=== PATIENT | female | born 1970 | race Caucasian/White ===

== ENCOUNTER 2017-03-27 03:18 | Observation (INO) ==
--- NOTE | 2017-03-27 04:26 | Emergency Department Note ---
Disposition Clinical Impression: Hypokalemia, Chest pain, rule out acute myocardial infarction, Peripheral edema Disposition: Admitted As Inpatient Condition: Good Referrals: Reynaldo Tinajero MD [Primary Care Provider] - Time of Disposition: 07:24 General Adult HPI - General Chief complaint: ED General Medical Stated complaint: swelling in lower extremities Time Seen by Provider: 03/27/17 03:33 Source: patient, family Mode of arrival: wheelchair Limitations: no limitations Nursing Notes Reviewed: Yes Vital Signs Reviewed: Yes - History of Present Illness HPI Narrative: Patient is a 46-year-old female that presents to the ED with bilateral leg swelling and increased urination and loss of bladder control. Patient states that the leg swelling has been off-and-on for the past month. She has been prescribed Lasix but for the past 3-4 days Lasix has not been helping the leg swelling. Said nothing really seems to make this any better and nothing makes it worse. Patient also states that she has had some lower abdominal pain. Patient states that it is just kind of a dull ache and is relieved with urination. She states that she has increase urinary frequency but denies any burning with urination or blood in the urine. Patient has also had increased thirst. Patient states that she feels like she has been having a fever with chills. The patient also mentions that she has been having some intermittent chest pain that usually last for 5 minutes. States that it is located on the left and radiates to the center of her chest. She states that it is sharp in nature and sometimes causes her to be short of breath. Pain Scale: 10 - Related Data Home Medications Medication Instructions Recorded Confirmed Alprazolam [Xanax] 1 mg PO TID 07/31/15 05/04/16 Amlodipine [Norvasc] 5 mg PO QAM 07/31/15 05/04/16 Duloxetine [Cymbalta] 30 mg PO QAM 07/31/15 05/04/16 Gabapentin [Neurontin] 800 mg PO TID 07/31/15 05/04/16 Hydrochlorothiazide 25 mg PO QAM 07/31/15 05/04/16 Ketotifen Fumarate [Zaditor] 1 drop BOTH EYES BID 04/01/16 05/04/16 Latanoprost [Xalatan] 1 drop BOTH EYES HS 04/01/16 05/04/16 Previous Rx's Medication Instructions Recorded OxyCODONE Immed Rel [Roxicodone 5 5 mg PO Q6HR PRN #60 tablet 04/02/16 MG] Acetaminophen [Tylenol] 650 mg PO Q6HR PRN #20 tablet 08/06/16 Diclofenac Potassium 50 mg PO TID PRN #20 tablet 08/06/16 Lacosamide [Vimpat] 100 mg PO DAILY #20 tablet 11/09/16 Ondansetron ODT [Zofran ODT] 4 mg SL Q6HR #10 tab.rapdis 11/09/16 Allergies Allergy/AdvReac Type Severity Reaction Status Date / Time No Known Allergies Allergy Verified 07/31/15 20:10 All systems ED: reviewed and negative except as stated. Constitutional: Reports: fever, chills Cardiovascular: Reports: chest pain Respiratory: Reports: dyspnea Gastrointestinal: Reports: abdominal pain Genitourinary: Reports: urgency, frequency Integumentary: Reports: rash Past Medical History - Past Medical History Attestation: Yes The following information was validated with the patient. Medical history: Reports: fibromyalgia, GI bleed, hypertension, seizures Surgical history: Reports: hysterectomy Psychiatric history: Reports: anxiety, depression - Social History Smoking Status: Current every day smoker Smokeless Tobacco Status: No Alcohol use: Reports: none Drug use: Reports: marijuana Physical Exam - General Limitations: no limitations General appearance: alert, in no apparent distress - Head Head exam: atraumatic, normocephalic - Neck Neck exam: Present: normal inspection, full ROM, trachea midline - Respiratory Respiratory exam: Present: wheezes. Absent: respiratory distress - Cardiovascular Cardiovascular exam: Present: regular rate, normal rhythm, normal heart sounds, +S1, +S2 - Abdominal Exam Abdominal exam: Present: soft, normal bowel sounds, other (Diffuse discomfort on palpation) - Expanded Lower Extremity Exam Lower leg exam: Present: swelling (Mild swelling bilaterally) Ankle exam: Present: swelling Foot/toe exam: Present: swelling - Neurological Exam Neurological exam: Present: alert, oriented X3 - Psychiatric Psychiatric exam: Present: normal affect, normal mood - Skin Skin exam: Present: warm, dry, intact Course Vital Signs Temperature 98.4 F 03/27/17 03:18 Pulse Rate 77 03/27/17 03:18 Respiratory Rate 18 03/27/17 03:18 Blood Pressure 118/75 03/27/17 03:18 O2 Sat by Pulse Oximetry 94 03/27/17 03:18 Temperature 98.4 F 03/27/17 03:18 Pulse Rate 65 03/27/17 07:05 Respiratory Rate 18 03/27/17 07:05 Blood Pressure 104/55 03/27/17 07:05 O2 Sat by Pulse Oximetry 95 03/27/17 07:05 Oxygen Delivery Oxygen Delivery Room Air Medical Decision Making - MDM Narrative Medical decision making narrative: Patient is a 46-year-old female that presents with chest pain, bilateral leg swelling and increased frequency of urination. Patient states the potassium came back at 2.2 so we gave her 40 of oral potassium and 40 of IV potassium. Due the patient's symptoms and current laboratory findings I am recommending the patient is admitted to the hospital. EKG showed sinus rhythm with diffuse t wave flattening, Troponin was negative, chest x-ray showed a stable chest without acute infiltrate. We will be admitting the patient for ACS rule out, hypokalemia and peripheral edema. Dr. Hernandez spoke with the hospitalist and will be admitting the patient. - Medical Records Medical records reviewed: Yes I reviewed the patient's medical records. - Lab Data Lab results reviewed: Yes I reviewed the patient's lab results. Result diagrams: 03/27/17 05:12 03/27/17 05:12 Lab Results 03/27/17 03/27/17 03/27/17 Range/Units 04:47 05:12 05:12 WBC 9.7 (4.3-11.1) K/mcL RBC 4.19 (3.82-4.97) M/mcL Hgb 12.9 (11.5-15.4) g/dL Hct 37.7 (35.3-44.9) % MCV 90.0 (83.0-100.0) fL MCH 30.8 (28.0-33.3) pg MCHC 34.2 (31.6-35.5) g/dL RDW 13.8 (11.5-14.5) % Plt Count 107 L (140-400) K/mcL MPV 12.6 H (9.4-12.4) fL Immature Gran % 0.4 (0-4) % Seg Neutrophils % 68.7 % Lymphocytes % 25.1 % Monocytes % 5.1 % Eosinophils % 0.5 % Basophils % 0.2 % Neutrophils # 6.7 (1.6-8.9) K/mcL Lymphocytes # 2.4 (0.6-4.6) K/mcL Monocytes # 0.5 (0.0-1.3) K/mcL Eosinophils # 0.1 (0.0-0.6) K/mcL Basophils # 0.0 (0.0-0.2) K/mcL Immature Plt Fraction 13.0 H (1.1-6.1) % PT 12.6 H (9.4-12.1) Seconds INR 1.2 APTT 28.7 (26.0-36.0) Seconds Sodium (136-145) mEq/L Potassium (3.5-4.5) mEq/L Chloride (98-109) mEq/L Carbon Dioxide (19-29) mEq/L BUN (7-20) mg/dL Creatinine (0.57-1.11) mg/dL Est GFR ( Amer) (> 60) Est GFR (Non-Af Amer) (> 60) BUN/Creatinine Ratio (6-26) Glucose (70-99) mg/dL Calculated Osmolality (280-300) Calcium (8.6-10.8) mg/dL Troponin I (0-0.03) ng/mL B-Natriuretic Peptide (0-100) pg/mL Urine Color Yellow (Yellow) Urine Clarity Clear (Clear) Urine pH 7.0 (5.0-8.0) pH Units Ur Specific Apex 1.007 L (1.010-1.025) Urine Protein Negative (Neg-Trace) mg/dL Urine Glucose (UA) Normal (Normal) mg/dL Urine Ketones Negative (Negative) mg/dL Urine Blood Trace H (Negative) Urine Nitrite Negative (Negative) Urine Bilirubin Negative (Negative) Urine Urobilinogen Normal (Normal) mg/dL Ur Leukocyte Esterase Small H (Negative) Urine Microscopic RBC 0-3 (0-3) per hpf Urine Microscopic WBC 0-3 (0-3) per hpf Ur Squamous Epith Cells Few (None-Few) per lpf Urine Bacteria Few (None-Few) per hpf Hyaline Casts Test Not Performed Ur Culture Indicated? YES A (NO) 03/27/17 03/27/17 03/27/17 Range/Units 05:12 05:12 05:12 WBC (4.3-11.1) K/mcL RBC (3.82-4.97) M/mcL Hgb (11.5-15.4) g/dL Hct (35.3-44.9) % MCV (83.0-100.0) fL MCH (28.0-33.3) pg MCHC (31.6-35.5) g/dL RDW (11.5-14.5) % Plt Count (140-400) K/mcL MPV (9.4-12.4) fL Immature Gran % (0-4) % Seg Neutrophils % % Lymphocytes % % Monocytes % % Eosinophils % % Basophils % % Neutrophils # (1.6-8.9) K/mcL Lymphocytes # (0.6-4.6) K/mcL Monocytes # (0.0-1.3) K/mcL Eosinophils # (0.0-0.6) K/mcL Basophils # (0.0-0.2) K/mcL Immature Plt Fraction (1.1-6.1) % PT (9.4-12.1) Seconds INR APTT (26.0-36.0) Seconds Sodium 138 (136-145) mEq/L Potassium 2.2 L* (3.5-4.5) mEq/L Chloride 96 L (98-109) mEq/L Carbon Dioxide 32 H (19-29) mEq/L BUN 6 L (7-20) mg/dL Creatinine 0.77 (0.57-1.11) mg/dL Est GFR ( Amer) > 60 (> 60) Est GFR (Non-Af Amer) > 60 (> 60) BUN/Creatinine Ratio 8 (6-26) Glucose 110 H (70-99) mg/dL Calculated Osmolality 284 (280-300) Calcium 9.0 (8.6-10.8) mg/dL Troponin I 0.00 (0-0.03) ng/mL B-Natriuretic Peptide 132 H (0-100) pg/mL Urine Color (Yellow) Urine Clarity (Clear) Urine pH (5.0-8.0) pH Units Ur Specific Apex (1.010-1.025) Urine Protein (Neg-Trace) mg/dL Urine Glucose (UA) (Normal) mg/dL Urine Ketones (Negative) mg/dL Urine Blood (Negative) Urine Nitrite (Negative) Urine Bilirubin (Negative) Urine Urobilinogen (Normal) mg/dL Ur Leukocyte Esterase (Negative) Urine Microscopic RBC (0-3) per hpf Urine Microscopic WBC (0-3) per hpf Ur Squamous Epith Cells (None-Few) per lpf Urine Bacteria (None-Few) per hpf Hyaline Casts Ur Culture Indicated? (NO) - Radiology Data Radiology results reviewed: Yes I reviewed the patient's radiology results. Chest X-Ray 03/27/17 04:05 IMPRESSION: Stable appearing chest without acute infiltrate identified. D/ / Cuco Wilson MD / Cuco Wilson MD Interpreting Provider: Cuco Wilson MD - EKG Data EKG #1 EKG attestation: Yes I reviewed and interpreted this EKG. EKG results narrative: EKG shows sinus rhythm with a rate of 70 bpm ME interval of 163 QRS duration 94 QTc 427 with a normal axis and diffuse T-wave flat and no ischemic changes noted. In comparison to EKG of 11/09/16 there is diffuse T-wave flattening Attestation Statement - Attestation Attestation: I, Jayme Hernandez, examined this patient and my medical decision-making was reviewed with the POWER MARKETER/PA/Advanced Practice Nurse/Resident Physician. I agree with the documented findings, disposition and treatment plan as described except to the extent set forth below. 46-year-old female presents with concerns of bilateral peripheral edema the lower extremities. She also reports intermittent chest pain over the past week which has become progressively worse. Patient states she has associated nausea , diaphoresis and shortness of breath or chest pain. EKG showed diffuse T-wave flattening without other evidence of STEMI or arrhythmia. Initial troponin negative. Patient given potassium replacement in the emergency department for her hypokalemia. Patient will be admitted to the hospital for further care and evaluation of her peripheral edema and her acute chest pain to rule out ACS.
[2017-03-27 04:52] LABS: Bilirubin,Urine Negative (Negative); Blood,Urine Trace (Negative); Clarity,Urine Clear (Clear); Color,Urine Yellow (Yellow); Glucose,Urine (UA) Normal (Normal); Ketones,Urine Negative (Negative); Leukocyte Esterase,Urine Small (Negative); Nitrite,Urine Negative (Negative); Protein,Urine Negative (Neg-Trace); Specific Gravity,Urine 1.007 (1.010-1.025); Urobilinogen,Urine Normal (Normal)
[2017-03-27 05:04] LABS: RBC,Urine 0-3 per hpf (0-3); Squamous Epithelial Cell,Urine Few per lpf (None-Few); WBC,Urine 0-3 per hpf (0-3)
[2017-03-27 05:05] LABS: Bacteria,Urine Few per hpf (None-Few)
[2017-03-27 05:28] LABS: Basophils % 0.2 %; Eosinophils # 0.1 K/mcL (0.0-0.6); Eosinophils % 0.5 %; Hematocrit 37.7 % (35.3-44.9); Immature Granulocytes % 0.4 % (0-4); Lymphocytes # 2.4 K/mcL (0.6-4.6); Lymphocytes % 25.1 %; Mean Corpuscular HGB Conc 34.2 g/dL (31.6-35.5); Mean Corpuscular Hemoglobin 30.8 pg (28.0-33.3); Mean Platelet Volume 12.6 fL (9.4-12.4); Monocytes # 0.5 K/mcL (0.0-1.3); Monocytes % 5.1 %; Neutrophils # 6.7 K/mcL (1.6-8.9); Platelet Count 107 K/mcL (140-400); Red Blood Count 4.19 M/mcL (3.82-4.97); Red Cell Distribution Width 13.8 % (11.5-14.5); Segmented Neutrophils % 68.7 %
[2017-03-27 05:32] LABS: Hemoglobin 12.9 g/dL (11.5-15.4)
[2017-03-27 05:33] LABS: INR 1.2; Prothrombin Time 12.6 Seconds (9.4-12.1)
[2017-03-27 05:36] LABS: Activated Partial Thrombo Time 28.7 Seconds (26.0-36.0)
[2017-03-27 05:39] LABS: BUN/Creatinine Ratio 8 (6-26); Blood Urea Nitrogen 6 mg/dL (7-20); Carbon Dioxide 32 mEq/L (19-29); Chloride 96 mEq/L (98-109); Glucose 110 mg/dL (70-99); Osmolality,Calculated 284 (280-300); Sodium 138 mEq/L (136-145); eGFR For African Americans > 60 (> 60); eGFR For Non-African Americans > 60 (> 60)
[2017-03-27 05:41] LABS: Potassium 2.2 mEq/L (3.5-4.5)
[2017-03-27] MEDS ORDERED: *HR* FentaNYL (PF) 100 MCG/2 ML VIAL IVP ONE (05:49)
[2017-03-27] MEDS ORDERED: Aspirin 81 MG TAB.CHEW PO ONE (06:06)
[2017-03-27] MEDS: Nicotine 7 MG PATCH.TD24 TD SCH ×2 (06:23→10:11)
[2017-03-27] MEDS ORDERED: 0.9 % Sodium Chloride 1,000 ML ONE (06:31)
[2017-03-27] MEDS ORDERED: Acetaminophen 325 MG TABLET PO PRN (09:43)
[2017-03-27] MEDS ORDERED: Ondansetron 4 MG/2 ML VIAL IVP PRN (09:43)
[2017-03-27] MEDS ORDERED: Naloxone 0.4 MG/ML INJ IVP PRN (09:43)
[2017-03-27 10:22] LABS: BUN/Creatinine Ratio 9 (6-26); Blood Urea Nitrogen 7 mg/dL (7-20); Calcium 8.6 mg/dL (8.6-10.8); Carbon Dioxide 35 mEq/L (19-29); Chloride 99 mEq/L (98-109); Glucose 97 mg/dL (70-99); Magnesium 2.2 mg/dL (1.6-2.6); Osmolality,Calculated 288 (280-300); Potassium 2.6 mEq/L (3.5-4.5); Sodium 140 mEq/L (136-145); eGFR For African Americans > 60 (> 60); eGFR For Non-African Americans > 60 (> 60)
[2017-03-27] MEDS: Gabapentin 300 MG CAPSULE PO SCH ×3 (10:28→21:51)
[2017-03-27] MEDS: *HR* Morphine 2 MG/ML SYRINGE IVP PRN ×2 (10:29→21:59)
[2017-03-27] MEDS: Topiramate 25 MG TABLET PO SCH ×2 (10:29→21:52)
--- NOTE | 2017-03-27 11:33 | Internal Med History&Physical ---
Date of Encounter: 03/27/17 Time of Encounter: 09:30 Assessment and Plan (1) Hypokalemia Current visit: Yes Status: Acute Due to the use of diuretics. Patient received IV and oral supplementation of potassium chloride in the emergency room. Recheck serum potassium and supplement appropriately. Telemetry monitoring. (2) Peripheral edema Current visit: Yes Status: Acute CHF versus DVT/venous insufficiency versus cirrhosis versus nephrotic syndrome. Low suspicion for CHF. Patient had echocardiogram done about 2-3 weeks ago which showed preserved ejection fraction, mild left ventricular diastolic dysfunction and no other acute abnormalities. Check lower extremity venous Doppler to rule out DVT. Continue IV Lasix along with potassium supplements and fluid restriction. Lower extremity elevation. Patient is also noted to be on calcium channel jesika at home, this will have to be held at discharge due to significant pedal edema. (3) Seizure disorder Current visit: Yes Status: Chronic Continue home medications. Seizure precautions. (4) Fibromyalgia Current visit: Yes Status: Chronic Continue Cymbalta, gabapentin. (5) Hypertension Current visit: Yes Status: Chronic Blood pressure noted to be low normal. Hold Norvasc due to leg swelling. Qualifiers: Hypertension type: essential hypertension Qualified Code(s): I10 - Essential (primary) hypertension (6) Tobacco abuse Current visit: Yes Status: Chronic Smoking cessation counseling done, patient is not motivated to quit smoking at this time. Continue nicotine transdermal patch. Internal Medicine - H&P: HPI Chief complaint: Leg swelling Admitted From: Emergency Dept Plans for Post Hospital Care: Home History of present illness: Ms. Hermosillo is a 46 year old female with history of hypertension, seizure disorder, fibromyalgia, presents with complaints of worsening leg swelling. Patient reports a one-month history of progressively worsening leg swelling in both legs associated with intermittent episodes of chest pain. Chest pain is mild to moderate in intensity, nonradiating, not associated with shortness of breath, orthopnea, cough, dizziness or syncope. She was seen by her primary care provider for leg swelling and has been started on as needed Lasix for the last 3 weeks with only partial relief. Patient reports significant worsening in her leg swelling associated with slight abdominal distention since yesterday. It has become difficult for her to stand up or be weight on her legs and she felt "they may burst open" due to the swelling. Past Med Surg Social Fam HX - Past Medical History Medical history: fibromyalgia, GI bleed, hypertension, seizures Psychiatric history: anxiety, depression - Past Surgical History Surgical History: hysterectomy, orthopedic, other (Bilateral carpal tunnel release, left elbow release surgery), other (Tubal ligation, back surgery) - Social History Smoking Status: Current every day smoker Packs per day: 1.5 Smokeless Tobacco Status: No Alcohol use: none Drug use: marijuana Occupational status: disabled Current living situation: Home, With Family Activity Level: Independent ambulation Recent Out of Country Travel Within the Last 8 Weeks: No - Family History Mother Family Member Ethnicity: Non- Living Status: Still Living Hx Family Cardiac Disorders: Yes Hx Family Endocrine Disorder: Yes (DM Type II) Father Living Status: Still Living Hx Family Cardiac Disorders: Yes (bypass, afib) Hx Family Respiratory Disorders: Yes (COPD) Hx Family Cancer: No Hx Family GI Disorders: No Hx Family Endocrine Disorder: No Hx Family Neuromuscular Disorders: No Hx Family Neurologic Disorders: No Hx Family HEENT Disorders: No Hx Family Autoimmune Disorders: No Internal Medicine - H&P: Meds Amlodipine [Norvasc] 5 mg PO QAM 07/31/15 [History] Duloxetine [Cymbalta] 30 mg PO QAM 07/31/15 [History] Hydrochlorothiazide 25 mg PO QAM 07/31/15 [History] Citalopram [CeleXA] 20 mg PO DAILY 03/27/17 [History] Cyanocobalamin (B-12) [Vitamin B12] 1,000 mcg IM TH 03/27/17 [History] Dextran 70/Hypromellose [Natural Balance Tears Eye Drop] 1 drop BOTH EYES QID PRN 03/27/17 [History] Furosemide [Lasix] 20 mg PO DAILY 03/27/17 [History] Gabapentin [Neurontin] 900 mg PO TID 03/27/17 [History] Propylene Glycol/Peg 400 [Systane 0.3-0.4% Eye Drops] 1 drop BOTH EYES BID 03/27 [History] SUMAtriptan Succinate [Imitrex] 100 mg PO DAILY PRN 03/27/17 [History] Topiramate [Topamax] 25 mg PO BID 03/27/17 [History] traZODone [TraZODone] 50 mg PO HS 03/27/17 [History] Allergies lacosamide [From Vimpat] Allergy (Verified 03/27/17 08:55) Hives All Systems PM: A 10-system review of systems was performed and is negative for pertinent findings except as documented above in the HPI. - Constitutional Constitutional: no chills, no fever(s), no night sweats - EENT Eyes: no change in vision, no discharge, no pain, no photophobia Ears: no ear discharge, no ear pain, no tinnitus Nose, mouth and throat: no dysphagia, no nasal discharge, no neck pain, no sore throat - Cardiovascular Cardiovascular ROS IM: edema, no chest pain, no diaphoresis, no dyspnea, no lightheadedness, no palpitations, no syncope - Respiratory Respiratory: no cough, no dyspnea, no wheezing, no excessive phlegm production - Gastrointestinal Gastrointestinal: bloating, no abdominal pain, no diarrhea, no hematemesis, no hematochezia, no melena, no nausea, no vomiting - Genitourinary Genitourinary: no change in urinary stream, no dysuria, no flank pain, no hematuria - Musculoskeletal Musculoskeletal ROS IM: no numbness, no tingling - Integumentary Integumentary IM: no rash, no unusual bruising - Neurological Neurological ROS: no confusion, no convulsions, no focal weakness, no numbness, no tingling, no tremor(s) - Hematologic/Lymphatic Hematologic/Lymphatic: no easy bruising - Constitutional Vitals: Temp Pulse Resp BP Pulse Ox 97.6 F 62 17 101/66 94 03/27/17 11:17 03/27/17 11:17 03/27/17 11:17 03/27/17 11:17 03/27/17 11:17 General appearance: Present: A&O X 3, answers questions appropriately - Respiratory Respiratory exam: Present: CTAB. Absent: accessory muscle use, rales, rhonchi, wheezes - Cardiovascular Cardiovascular exam: Present: RRR, +S1, +S2. Absent: diastolic murmur, gallop, rubs, systolic murmur - GI/Abdominal GI/Abdominal exam: Present: distended, normal bowel sounds, soft, no peritoneal signs. Absent: tenderness - Extremities Exam Extremities exam: Present: full ROM, pedal edema (2+ tense pedal edema bilaterally, extending up to knees), warm, radial pulses palpable and symetrical. Absent: calf tenderness, cyanotic - Neurological Exam Neurological exam: Present: CN II-XII intact, oriented X3, no focal deficits. Absent: pronater drift, facial droop, speech deficit - Skin Skin exam: Present: dry, intact Internal Med - H&P Results - Labs CBC & Chem 7: 03/27/17 05:12 03/27/17 10:01 Labs: BMP 03/27/17 10:01 Sodium 140 Potassium 2.6 L Chloride 99 Carbon Dioxide 35 H BUN 7 Creatinine 0.78 Glucose 97 Calcium 8.6 Cardiac Enzymes 03/27/17 Range/Units 10:01 Troponin I 0.00 (0-0.03) ng/mL - EKG Data -: EKG Interpreted by Myself EKG shows normal: sinus rhythm Rate: normal
[2017-03-27] MEDS: *HR* OxyCODONE Immed Rel 5 MG TABLET PO PRN (12:09)
--- NOTE | 2017-03-27 17:16 | Venous Imaging Report ---
LE Venous Duplex Patient Name:Dinorha Hermosillo Order Number:[id number] Procedure Date:03/27/2017 Date:1970Age:46 yrs Gender:Female Location:[facility] Room #: 3B34 Brick Baker:Cam Kaba RN Referring MD:Jayme Hernandez DO hot water heater installer:Reynaldo Tinajero MD Reading MD:Jesse Longoria MD Primary Indications:Pain in limb Secondary Indications: Risk Factors Yes/No Smoking Current Yes Anticoagulants No Previous Vascular Surgery No Hx of DVT No Hx of Chemotherapy No Trauma to Veins No Recent Surgery No Hx of Superficial Phlebitis No Impressions: Normal bilateral lower extremity deep and superficial venous exam. Recommendations: Test completed on 03/27/2017 at 2:20:00 pm. Findings Venous Duplex Results: Right: Venous imaging of the lower extremity reveals full patency and normal vessel compressibility of the right distal iliac, right common femoral, right superficial femoral, right popliteal, right posterior tibial, right peroneal, right great saphenous and right lesser saphenous. Doppler signals in the evaluated veins were normal. Left: Venous imaging of the lower extremity reveals full patency and normal vessel compressibility of the left distal iliac, left common femoral, left superficial femoral, left popliteal, left posterior tibial, left peroneal, left great saphenous and left lesser saphenous. Doppler signals in the evaluated veins were normal. Prior Study: No prior study available for comparison. Lower Extremity Venous Duplex Side Vein Compress Spontaneous Flow Augment Diameter (cm) Depth (cm) Right Distal Iliac Normal Yes Phasic Yes Right Common Femoral Normal Yes Phasic Yes Right Superficial Femoral Normal Yes Phasic Yes Right Popliteal Normal Yes Phasic Yes Right Posterior Tibial Normal Yes Phasic Yes Right Peroneal Normal Yes Phasic Yes Right Great Saphenous Normal Yes Phasic Yes Right Lesser Saphenous Normal Yes Phasic Yes Left Distal Iliac Normal Yes Phasic Yes Left Common Femoral Normal Yes Phasic Yes Left Superficial Femoral Normal Yes Phasic Yes Left Popliteal Normal Yes Phasic Yes Left Posterior Tibial Normal Yes Phasic Yes Left Peroneal Normal Yes Phasic Yes Left Great Saphenous Normal Yes Phasic Yes Left Lesser Saphenous Normal Yes Phasic Yes Updated by Jesse Longroia MD on 03/27/2017 5:10:03 PM electronically signed on 03/27/2017 5:10:23 PM with status of Final
--- NOTE | 2017-03-27 17:30 | Electrocardiograph Report ---
[place] [id number] Test Date: 2017-03-27 Pat Name: Dinorah Hermosillo Department: 102 Room: 3B Gender: F Pattern Maker: Stefani : 1970 Requested By: Jayme Hernandez Order Number: [id number] Reading MD: Tashi Villalba DO Measurements Intervals [place] Rate: 70 P: -41 RI: 163 QRS: 61 QRSD: 94 T: 56 QT: 406 QTc: 427 Interpretive Statements SINUS RHYTHM NONSPECIFIC ST & T-WAVE ABNORMALITY Electronically Signed On 03-27-2017 17:28:29 EDT by Tashi Villalba DO
[2017-03-27] MEDS: Furosemide 20 MG/2 ML VIAL IVP SCH (21:51)
[2017-03-27] MEDS: traZODone 50 MG TABLET PO SCH (21:52)
[2017-03-28 04:52] LABS: Red Cell Distribution Width 14.3 % (11.5-14.5); Segmented Neutrophils % 59.1 %
[2017-03-28 04:54] LABS: Basophils % 0.2 %; Eosinophils # 0.1 K/mcL (0.0-0.6); Eosinophils % 2.1 %; Hematocrit 36.3 % (35.3-44.9); Immature Granulocytes % 0.2 % (0-4); Immature Platelets 13.3 % (1.1-6.1); Lymphocytes # 1.7 K/mcL (0.6-4.6); Lymphocytes % 32.1 %; Mean Corpuscular HGB Conc 33.1 g/dL (31.6-35.5); Mean Corpuscular Hemoglobin 30.8 pg (28.0-33.3); Mean Corpuscular Volume 93.1 fL (83.0-100.0); Mean Platelet Volume 12.7 fL (9.4-12.4); Monocytes # 0.3 K/mcL (0.0-1.3); Monocytes % 6.3 %; Neutrophils # 3.1 K/mcL (1.6-8.9)
[2017-03-28 05:10] LABS: BUN/Creatinine Ratio 10 (6-26); Blood Urea Nitrogen 7 mg/dL (7-20); Calcium 8.2 mg/dL (8.6-10.8); Carbon Dioxide 34 mEq/L (19-29); Chloride 103 mEq/L (98-109); Glucose 100 mg/dL (70-99); Osmolality,Calculated 290 (280-300); Potassium 2.9 mEq/L (3.5-4.5); Sodium 141 mEq/L (136-145); eGFR For African Americans > 60 (> 60); eGFR For Non-African Americans > 60 (> 60)
[2017-03-28 05:18] LABS: Platelet Count 93 K/mcL (140-400)
[2017-03-28] MEDS: Topiramate 25 MG TABLET PO SCH ×2 (08:35→20:17)
[2017-03-28] MEDS: Gabapentin 300 MG CAPSULE PO SCH ×3 (08:35→20:16)
[2017-03-28] MEDS: Furosemide 20 MG/2 ML VIAL IVP SCH ×2 (08:35→20:17)
[2017-03-28] MEDS: Nicotine 21 MG PATCH.TD24 TD SCH (08:36)
[2017-03-28] MEDS: *HR* OxyCODONE Immed Rel 5 MG TABLET PO PRN ×2 (08:46→18:37)
[2017-03-28] MEDS ORDERED: Artificial Tears SOLN 15 ML BOTTLE BOTH EYES PRN (09:35)
[2017-03-28] MEDS ORDERED: SUMAtriptan succinate 50 MG TABLET PO PRN (09:35)
[2017-03-28] MEDS ORDERED: 0.9 % Sodium Chloride 250 ML ONE (11:14)
[2017-03-28] MEDS: *HR* Morphine 2 MG/ML SYRINGE IVP PRN ×2 (14:19→20:17)
--- NOTE | 2017-03-28 16:07 | Internal Med Progress Note ---
Date of Encounter: 03/28/17 Time of Encounter: 11:00 - Assessment and plan (1) Chest pain, rule out acute myocardial infarction Current Visit: Yes Status: Acute Assessment and plan: Chest x-ray negative. Lower extremity Doppler ultrasound negative. Troponin negative 4. Patient currently denies chest pain. Her complaint at this time is generalized weakness and mild shortness of breath. Low suspicion for acute coronary syndrome. Urine culture negative. Addressing her hypokalemia. Patient stating that she is going to move soon and she would like home health services set up when she moves but she states she does not want the set up just yet, will bring OT and PT on board for their recommendations. Patient stating she uses a walker and a wheelchair at home though it is unclear why she would need to do so. Appreciate OT and PT recommendations. (2) Hypokalemia Current Visit: Yes Status: Acute Assessment and plan: trending up. repleting both IV and PO. Magnesium levels normal. Likely secondary to increased furosemide use at home (3) Diastolic heart failure Current Visit: Yes Status: Acute Assessment and plan: Patient had an echocardiogram on 03/10/17 that revealed an ejection fraction of 65% with mild diastolic dysfunction. Patient is on furosemide at home. Acute on chronic diastolic heart failure. Diuresing with IV furosemide. Patient was taking her furosemide as needed at home but over the past couple weeks, she has been taking it more frequently which led to her hypokalemia. Repleting and trending. Her pedal edema has lessened greatly and is now trace and nonpitting. Her abdominal girth is back down to normal according to the patient. She is still complaining of mild shortness of breath, mild weakness, and swelling in her hands (4) DVT prophylaxis Current Visit: No Status: Acute Assessment and plan: Observation patient. (5) Fibromyalgia Current Visit: Yes Status: Chronic (6) Hypertension Current Visit: Yes Status: Chronic Assessment and plan: controlled; will trend Qualifiers: Hypertension type: essential hypertension Qualified Code(s): I10 - Essential (primary) hypertension (7) Tobacco abuse Current Visit: Yes Status: Chronic Assessment and plan: declines counseling at this time. Nicotine patch. (8) Peripheral edema Current Visit: Yes Status: Resolved (9) Seizure disorder Current Visit: Yes Status: Chronic Assessment and plan: patient stating her most recent seizure was last thursday. She and her state that she has a seizure once every month or so. No seizure-like activity since admission. Patient stating she can feel when she is going to seize- instructed to let staff know if sensation arises. - Subjective Interval history: Patient seen and examined. On examination, patient resting supine in bed conversing with her . She stated that she had just stood up to walk to the bathroom, but she became dizzy and had to lay back down. She is also endorsing right arm pain and intermittent blurred vision. She states the swelling in her abdomen and legs has gone down. - Constitutional Vitals: Temp Pulse Resp BP Pulse Ox 98.1 F 67 16 99/65 94 03/28/17 15:16 03/28/17 15:16 03/28/17 15:16 03/28/17 15:16 03/28/17 15:16 General appearance: Present: A&O X 3, pleasant, no acute distress, answers questions appropriately - Head Head exam: Present: atraumatic, normocephalic - Eye Eye exam: Present: PERRL, conjuntiva pink, sclera anicteric Pupils: Present: PERRL - Neck Neck exam general surgery: Present: supple, trachea midline. Absent: lymphadenopathy - Respiratory Respiratory exam: Present: decreased breath sounds. Absent: accessory muscle use, rales, respiratory distress, rhonchi, wheezes - Cardiovascular Cardiovascular exam: Present: RRR, +S1, +S2. Absent: diastolic murmur, gallop, rubs, systolic murmur - GI/Abdominal GI/Abdominal exam: Present: normal bowel sounds, soft, no peritoneal signs. Absent: distended, tenderness - Extremities Exam Extremities exam: Present: pedal edema (trace, nonpitting), warm, radial pulses palpable and symetrical. Absent: calf tenderness, cyanotic - Neurological Exam Neurological exam: Present: alert, CN II-XII intact, oriented X3, no focal deficits, strengths equal and symetr throughout. Absent: pronater drift, facial droop, speech deficit - Skin Skin exam: Present: dry, intact, pallor, warm Internal Medicine: Result - Labs CBC & Chem 7: 03/28/17 04:05 03/28/17 04:05 Labs: Short CBC 03/28/17 Range/Units 04:05 WBC 5.3 (4.3-11.1) K/mcL Hgb 12.0 (11.5-15.4) g/dL Hct 36.3 (35.3-44.9) % Plt Count 93 L (140-400) K/mcL Neutrophils # 3.1 (1.6-8.9) K/mcL BMP 03/28/17 04:05 Sodium 141 Potassium 2.9 L Chloride 103 Carbon Dioxide 34 H BUN 7 Creatinine 0.68 Glucose 100 H Calcium 8.2 L Cardiac Enzymes 03/27/17 03/27/17 Range/Units 16:06 22:35 Troponin I 0.00 0.00 (0-0.03) ng/mL - ABG Interpretation ABG results: PT/INR, D-dimer PT 12.6 Seconds (9.4-12.1) H 03/27/17 05:12 Consult Discharge Plan - Plan
[2017-03-28] MEDS: traZODone 50 MG TABLET PO SCH (20:17)
[2017-03-29] MEDS: *HR* OxyCODONE Immed Rel 5 MG TABLET PO PRN ×2 (03:03→10:55)
[2017-03-29 04:36] LABS: Basophils % 0.4 %; Eosinophils # 0.1 K/mcL (0.0-0.6); Eosinophils % 2.7 %; Hematocrit 38.7 % (35.3-44.9); Hemoglobin 12.7 g/dL (11.5-15.4); Immature Granulocytes % 0.2 % (0-4); Lymphocytes # 2.1 K/mcL (0.6-4.6); Lymphocytes % 44.3 %; Mean Corpuscular HGB Conc 32.8 g/dL (31.6-35.5); Mean Corpuscular Hemoglobin 30.8 pg (28.0-33.3); Mean Corpuscular Volume 93.7 fL (83.0-100.0); Mean Platelet Volume 12.5 fL (9.4-12.4); Monocytes # 0.3 K/mcL (0.0-1.3); Monocytes % 5.3 %; Neutrophils # 2.2 K/mcL (1.6-8.9); Platelet Count 107 K/mcL (140-400); Red Blood Count 4.13 M/mcL (3.82-4.97); Red Cell Distribution Width 14.3 % (11.5-14.5); Segmented Neutrophils % 47.1 %
[2017-03-29 04:43] LABS: BUN/Creatinine Ratio 17 (6-26); Blood Urea Nitrogen 12 mg/dL (7-20); Calcium 8.8 mg/dL (8.6-10.8); Carbon Dioxide 26 mEq/L (19-29); Chloride 108 mEq/L (98-109); Glucose 90 mg/dL (70-99); Magnesium 2.4 mg/dL (1.6-2.6); Osmolality,Calculated 291 (280-300); Potassium 3.8 mEq/L (3.5-4.5); Sodium 141 mEq/L (136-145); eGFR For African Americans > 60 (> 60); eGFR For Non-African Americans > 60 (> 60)
[2017-03-29] MEDS: *HR* Morphine 2 MG/ML SYRINGE IVP PRN (06:11)
[2017-03-29 09:39] VITALS: BP 133/87
[2017-03-29] MEDS: Nicotine 21 MG PATCH.TD24 TD SCH (09:39)
[2017-03-29] MEDS: Gabapentin 300 MG CAPSULE PO SCH (09:39)
[2017-03-29] MEDS: Topiramate 25 MG TABLET PO SCH (09:39)
--- NOTE | 2017-03-29 09:59 | Discharge Summary ---
Date of Encounter: 03/29/17 Time of Encounter: 09:15 - Discharge Diagnosis (1) Chest pain, rule out acute myocardial infarction Priority: Primary Status: Resolved Comments: Patient denied chest pain on day of discharge. Chest x-ray negative. Lower extremity Doppler ultrasound negative. Troponin negative 4. (2) Hypokalemia Priority: Primary Status: Resolved (3) Diastolic heart failure Priority: Primary Status: Acute Comments: Patient had an echocardiogram on 03/10/17 that revealed an ejection fraction of 65% with mild diastolic dysfunction. Patient is on furosemide at home. Acute on chronic diastolic heart failure. Successully diuresed with IV furosemide. She is now euvolemic. Will send on daily low dose of furosemide with potassium supplementation. Educated on fluid restricted diet (4) DVT prophylaxis Priority: Primary Status: Acute Comments: Observation patient. (5) Fibromyalgia Priority: Secondary Status: Chronic Comments: Continue Cymbalta (6) Hypertension Priority: Secondary Status: Chronic Comments: controlled; followup outpatient Qualifiers: Hypertension type: essential hypertension Qualified Code(s): I10 - Essential (primary) hypertension (7) Tobacco abuse Priority: Secondary Status: Chronic Comments: declines counseling at this time. Nicotine patch while admitted. (8) Peripheral edema Priority: Primary Status: Resolved (9) Seizure disorder Priority: Secondary Status: Chronic Comments: patient stating her most recent seizure was last thursday. She and her state that she has a seizure once every month or so. No seizure-like activity since admission. Patient stating she can feel when she is going to seize and her states that she is never left alone when she is going to seize (10) Thrombocytopenia Priority: Secondary Status: Chronic Comments: Acute on chronic since the beginning of this year. Unclear causation, no signs of active bleeding, follow-up outpatient - Discharge Medications Prescriptions: Furosemide [Lasix] 20 mg PO DAILY #30 Potassium Chloride 10 meq PO BIDWM #60 tab.er.prt Home Medications: Amlodipine [Norvasc] 5 mg PO QAM 07/31/15 [History] Duloxetine [Cymbalta] 30 mg PO QAM 07/31/15 [History] Hydrochlorothiazide 25 mg PO QAM 07/31/15 [History] Citalopram [CeleXA] 20 mg PO DAILY 03/27/17 [History] Cyanocobalamin (B-12) [Vitamin B12] 1,000 mcg IM TH 03/27/17 [History] Dextran 70/Hypromellose [Natural Balance Tears Eye Drop] 1 drop BOTH EYES QID PRN 03/27/17 [History] Gabapentin [Neurontin] 900 mg PO TID 03/27/17 [History] Propylene Glycol/Peg 400 [Systane 0.3-0.4% Eye Drops] 1 drop BOTH EYES BID 03/27 [History] SUMAtriptan Succinate [Imitrex] 100 mg PO DAILY PRN 03/27/17 [History] Topiramate [Topamax] 25 mg PO BID 03/27/17 [History] traZODone [TraZODone] 50 mg PO HS 03/27/17 [History] Furosemide [Lasix] 20 mg PO DAILY #30 03/29/17 [Rx] Potassium Chloride 10 meq PO BIDWM #60 tab.er.prt 03/29/17 [Rx] Allergies/Adverse Reactions: Allergies lacosamide [From Vimpat] Allergy (Verified 03/27/17 08:55) Hives Date of admission: 03/27/17 07:54 Primary care physician: Reynaldo Tinajero MD Consults: 03/28/17 16:16 Consult to Occupational Therapy [CONS] Routine Comment: Evaluate, develop and implement POC Reason for Consult: wants help at home. uses walker and WC at home- unclear why Consult to Physical Therapy [CONS] Routine Comment: Evaluate, develop and implement POC Reason for Consult: wants help at home. uses walker and WC at home- unclear why Consult to [employer] [CONS] Routine Reason for SW Consult: wants help at home. uses walker and WC at home- unclear why. just received assistance to get a new home. Discharging clinician: Smaia Guzman Anticipated date of discharge: 03/29/17 - Patient Status Disposition: Home, Self-Care Condition: Good Functional capacity at discharge: uses cane/walker Overall status at discharge: patient is back to baseline - Discharge Instructions Follow Up With: Reynaldo Tinajero MD [Primary Care Provider] - Forms: ED Satisfaction Letter, Work/School Release Additional Instructions: Follow-up with primary care provider within one to 2 weeks, have blood work checked within 2 days - Diet and Activity Activity: increase activity as tolerated Diet: low fat, low cholesterol (fluid 1.5L/day restriction), low salt diet Hospital course: Ms. Hermosillo is a 46 year old female with past medical history of hypertension, seizure disorder, fibromyalgia, anxiety/depression. Patient presented to the emergency department chief complaint of one-month history of progressive worsening of her leg swelling bilaterally associated with intermittent episodes of chest pain. Patient stating the chest pain was mild to moderate, without radiation, and not associated with shortness of breath, orthopnea, cough, dizziness or syncope. Patient was seen by her primary care provider for pedal edema and was started on Lasix as needed at home with only partial relief over the past 3 weeks prior to presentation. She was initially instructed to take her Furosemide as needed, but she started to take it more often. Patient presented to the emergency department after she reported significant worsening of her leg swelling associated with mild abdominal distention that started on the day prior to presentation. Patient stating that it became difficult for her to stand up or to bear weight on her legs because she felt as if her legs may "burst open" due to the swelling. Workup in the emergency department notable for considerable hypokalemia of 2.2. Chest x-ray without acute processes. Patient was admitted to the hospitalist service for further evaluation and management. Patient had an echocardiogram on 03/10/17 that revealed an ejection fraction of 65% with mild diastolic dysfunction. Lower extremity Doppler ultrasound negative. Troponins negative 4. Patient denied chest pain while admitted. She was successfully diuresed with IV furosemide and her pedal edema and abdominal distention had resolved. She also denied shortness of breath above her normal day of discharge. Her hypokalemia was corrected. Magnesium levels remained normal. She did not have any seizure- like activity while admitted. She was started on daily furosemide at home along with potassium supplementation and educated on fluid and sodium restricted diets. She was instructed to have her Chemistries rechecked within 2 days of discharge. She was discharged home in stable condition with close outpatient follow-up recommended. Of note, patient was requesting to have in home health aide but she stated that she did not want this aide in place until she moved to her new house in a couple weeks. She was instructed to speak to her primary care provider. ITS Impressions Chest X-Ray 03/27/17 04:05 IMPRESSION: Stable appearing chest without acute infiltrate identified. D/ / Cuco Wilson MD / Cuco Wilson MD Interpreting Provider: Cuco Wilson MD - Time Spent with Patient Total time spent providing and/or coordinating discharge services: - Constitutional Vitals: Temp Pulse Resp BP Pulse Ox 97.3 F L 66 16 133/87 95 03/29/17 07:11 03/29/17 07:11 03/29/17 07:11 03/29/17 09:38 03/29/17 07:11 General appearance: Present: A&O X 3, pleasant, no acute distress, answers questions appropriately - Head Head exam: Present: atraumatic, normocephalic - Eye Eye exam: Present: PERRL, conjuntiva pink, sclera anicteric Pupils: Present: PERRL - Neck Neck exam general surgery: Present: supple, trachea midline. Absent: lymphadenopathy - Respiratory Respiratory exam: Present: decreased breath sounds. Absent: accessory muscle use, rales, respiratory distress, rhonchi, wheezes - Cardiovascular Cardiovascular exam: Present: RRR, +S1, +S2. Absent: diastolic murmur, gallop, rubs, systolic murmur - GI/Abdominal GI/Abdominal exam: Present: normal bowel sounds, soft, no peritoneal signs. Absent: distended, tenderness - Extremities Exam Extremities exam: Present: pedal edema (trace, nonpitting), warm, radial pulses palpable and symetrical. Absent: calf tenderness, cyanotic - Neurological Exam Neurological exam: Present: alert, CN II-XII intact, oriented X3, no focal deficits, strengths equal and symetr throughout. Absent: pronater drift, facial droop, speech deficit - Skin Skin exam: Present: dry, intact, normal color, warm
== END 2017-03-29 11:20 | disposition home or self-care (01) ==
LOC: 3BNU 03:18 → EMEROO 03:18 → 3BNU 08:40
PROVIDERS: ADMIT Internal Medicine; ATTEND Nurse Practitioner Family